=== PATIENT | male | born 1945 | race African-American/Black ===

== ENCOUNTER → 2018-07-07 | Outpatient (CLI) | payer MEDICARE, MEDICAID ==
[~2018-07-07] MED LIST: BRIM155OS OS; BRINOS OU; DILT240C93 PO; LOSA50TA37 PO; METF500T6 PO; PHEN100C23 PO; [UNRECOGNIZED DRUG - OTHER] OU
== END | disposition home or self-care (01) ==
LOC: RADPV 09:37
PROVIDERS: ATTEND Specialist
DX: R56.9 Unspecified convulsions (principal); R94.01 Abnormal electroencephalogram [EEG]
CPT/HCPCS: 95816

== ENCOUNTER 2022-04-01 11:04 | Emergency (ER) | payer MEDICARE, MEDICAID ==
[~2022-04-01] VITALS: Ht 185.4 cm; Wt 77.3 kg
[~2022-04-01 11:04] MED LIST changes: +BRIN10DR3 OU; -BRINOS OU; +DILT-72 PO; -DILT240C93 PO; +LOSA-382 PO; -LOSA50TA37 PO; +METF-1211 PO; -METF500T6 PO
[2022-04-01 13:36] LABS: BASOPHILS % (AUTO) 0.2 % (0.0-2.0); EOSINOPHILS % (AUTO) 0.4 % (1.0-6.0); HEMOGLOBIN 13.9 g/dL (13.5-17.5); LYMPHOCYTES # (AUTO) 1.2 K/uL (1.0-4.8); LYMPHOCYTES % (AUTO) 39.3 % (22.0-44.0); MEAN CORPUSCULAR HEMOGLOBIN 30.6 pg (26.0-34.0); MEAN CORPUSCULAR VOLUME 90 fL (80-100); MONOCYTES # (AUTO) 0.5 K/uL (0.1-1.0); MONOCYTES % (AUTO) 17.6 % (2.0-9.0); NEUTROPHILS # (AUTO) 1.3 K/uL (1.8-7.7); NEUTROPHILS % (AUTO) 42.5 % (40.0-70.0); PLATELET COUNT (AUTO) 195 K/uL (150-450); RED BLOOD CELL COUNT(AUTO) 4.56 MIL/uL (4.50-5.90)
[2022-04-01 13:38] LABS: CALCIUM, TOTAL 9.3 mg/dL (8.8-10.5); CREATININE 1.75 mg/dL (0.60-1.30); POTASSIUM 3.6 mmol/L (3.5-5.1)
[2022-04-01 13:44] LABS: ALBUMIN 3.9 g/dL (3.4-5.0); BILIRUBIN,TOTAL 0.6 mg/dL (0.1-1.0); PHENYTOIN (DILANTIN) 0.5 mcg/mL (10.0-20.0); TOTAL PROTEIN, SERUM 8.7 g/dL (6.4-8.2)
[2022-04-01] MEDS ORDERED: LORazepam 2 MG/ML VIAL IVP ONE (14:15)
[2022-04-01] MEDS ORDERED: PHENYTOIN SODIUM 100 MG ER CAPSULE PO ONE (14:15)
[2022-04-01 16:00] VITALS: BP 138/104
[2022-04-01] MEDS ORDERED: LOSA-382 PO (16:13)
[2022-04-01] MEDS ORDERED: PHENY100 PO (16:13)
== END 2022-04-01 16:49 | disposition home or self-care (01) ==
LOC: EMS 11:04
DX: G40.909 Epilepsy, unspecified, not intractable, without status epilepticus (principal); N28.9 Disorder of kidney and ureter, unspecified; I10 Essential (primary) hypertension; Z79.84 Long term (current) use of oral hypoglycemic drugs; Z83.3 Family history of diabetes mellitus
CPT/HCPCS: 36415; 80053; 80185; 85025; 96374; 99283; J2060

== ENCOUNTER 2025-05-31 14:28 | Inpatient (IN) | payer MEDICAID, MEDICARE ==
[~2025-05-31] VITALS: Ht 185.4 cm; Wt 81.3 kg
[~2025-05-31 14:28] MED LIST changes: -BRIM155OS OS; +BRIM5DRO23 OS; +PHEN100C74 PO
[2025-05-31 15:34] LABS: PLATELET COUNT (AUTO) 171 K/uL (150-450); RED BLOOD CELL COUNT(AUTO) 4.10 MIL/uL (4.50-5.90); RED CELL DISTRIBUTION WIDTH 15.2 % (11.5-14.5); WHITE BLOOD COUNT (AUTO) 4.1 K/uL (4.5-11.0)
[2025-05-31 15:35] LABS: CALCIUM, TOTAL 9.6 mg/dL (8.8-10.5); CREATININE 1.21 mg/dL (0.60-1.30); GLOMERULAR FILTR. RATE CALC > 60 mL/min (>60); GLUCOSE,RANDOM 74 mg/dL (70-110); UREA NITROGEN, BLOOD 24 mg/dL (7-18)
[2025-05-31 15:37] LABS: SODIUM SERUM 139 mmol/L (136-145)
[2025-05-31] MEDS: LORazepam 2 MG/ML VIAL IVP ONE (17:01)
[2025-05-31] MEDS: LevETIRAcetam 1,000 MG in DEXTROSE 5%-WATER 100 ML IV ONE (17:01)
[2025-05-31 17:08] LABS: TROPONIN I-HIGH SENSITIVITY 98 ng/L (<76)
[2025-05-31 17:15] LABS: PH,URINE DRUG SCREEN 5.5 (5.0-8.0)
[2025-05-31 17:16] LABS: APPEARANCE,URINE CLEAR (CLEAR); GLUCOSE, URINE (UA) NEGATIVE (NEGATIVE); LEUKOCYTE ESTERASE ,URINE NEGATIVE (NEGATIVE); NITRATE,URINE NEGATIVE (NEGATIVE); OCCULT BLOOD,URINE NEGATIVE (NEGATIVE); SPECIFIC GRAVITIY, URINE 1.019 (1.003-1.030)
[2025-05-31 17:21] LABS: ALCOHOL, URINE DRUG SCREEN NEGATIVE (NEGATIVE); AMPHET/METH SCREEN,URINE NEGATIVE (NEGATIVE); BARBITURATE SCREEN, URINE NEGATIVE (NEGATIVE); CANNABINOID SCREEN,URINE NEGATIVE (NEGATIVE); COCAINE SCREEN,URINE NEGATIVE (NEGATIVE); METHADONE SCREEN, URINE NEGATIVE (NEGATIVE)
[2025-05-31 19:27] LABS: TROPONIN I-HIGH SENSITIVITY 131 ng/L (<76)
[2025-05-31] MEDS ORDERED: MORPHINE SULFATE 2 MG/ML SYRINGE IVP PRN (22:00)
[2025-05-31] MEDS ORDERED: BISACODYL 10 MG RECTAL RECTAL SUPPOSITORY PR PRN (22:00)
[2025-05-31] MEDS ORDERED: HYDROCODONE/ACETAMINOPHEN 5-325 MG TABLET PO PRN (22:00)
[2025-05-31] MEDS ORDERED: ZOLPIDEM TARTRATE 5 MG TABLET PO PRN (22:00)
[2025-05-31] MEDS ORDERED: MAGNESIUM HYDROXIDE SUSPENSION 30 ML UDCUP PO PRN (22:00)
[2025-05-31] MEDS ORDERED: LORazepam 2 MG/ML VIAL IVP PRN (22:00)
[2025-05-31] MEDS ORDERED: ONDANSETRON HCL 4 MG/2 ML VIAL IVP PRN (22:00)
[2025-05-31 23:12] VITALS: BP 132/70; PULSE 78; RESP 18; TEMP 97.7; O2SAT 98
[2025-05-31] MEDS: HEPARIN SODIUM,PORCINE 5,000 UNITS/ML VIAL SQ SCH (23:34)
[2025-05-31] MEDS: ACETAMINOPHEN 325 MG TABLET PO PRN (23:34)
[2025-06-01 03:22] VITALS: BP 159/83; PULSE 73; RESP 18; TEMP 97.9; O2SAT 98
[2025-06-01 06:45] LABS: PLATELET COUNT (AUTO) 224 K/uL (150-450); RED BLOOD CELL COUNT(AUTO) 4.56 MIL/uL (4.50-5.90); RED CELL DISTRIBUTION WIDTH 14.9 % (11.5-14.5); WHITE BLOOD COUNT (AUTO) 3.7 K/uL (4.5-11.0)
[2025-06-01 07:01] LABS: CALCIUM, TOTAL 9.6 mg/dL (8.8-10.5); CREATININE 0.88 mg/dL (0.60-1.30); GLOMERULAR FILTR. RATE CALC > 60 mL/min (>60); GLUCOSE,RANDOM 79 mg/dL (70-110); SODIUM SERUM 139 mmol/L (136-145); UREA NITROGEN, BLOOD 16 mg/dL (7-18)
[2025-06-01 07:17] LABS: RBC MORPHOLOGY COMMENT NORMAL RBC MORPH
[2025-06-01 08:00] VITALS: BP 160/82; PULSE 72; RESP 18; TEMP 98.1; O2SAT 98
[2025-06-01] MEDS: DOCUSATE SODIUM 100 MG CAPSULE PO SCH (08:59)
[2025-06-01] MEDS: PANTOPRAZOLE SODIUM 40 MG DR TABLET PO SCH (08:59)
[2025-06-01] MEDS ORDERED: POTASSIUM CHL 10 MEQ/WATER 50 ML IV PRN (11:15)
[2025-06-01 12:00] VITALS: BP_SYST 129; BP_DIAS 75; BP_DIAS 81; PULSE 100; PULSE 74; RESP 18; RESP 22; TEMP 97.7; TEMP 97.9; O2SAT 100; O2SAT 96
[2025-06-01] MEDS: POTASSIUM CHLORIDE 20 MEQ ER TABLET PO PRN (12:26)
[2025-06-01 16:00] VITALS: BP 122/71; PULSE 75; RESP 18; TEMP 97.7; O2SAT 96
[2025-06-01 20:17] VITALS: BP 146/83; PULSE 75; RESP 19; TEMP 97.7; O2SAT 99
[2025-06-01 23:39] VITALS: BP 149/80; PULSE 67; RESP 17; TEMP 98; O2SAT 100
[2025-06-02 04:34] VITALS: BP 103/76; PULSE 71; RESP 18; TEMP 97.7; O2SAT 98
[2025-06-02 07:06] LABS: PLATELET COUNT (AUTO) 220 K/uL (150-450); RED BLOOD CELL COUNT(AUTO) 4.54 MIL/uL (4.50-5.90); RED CELL DISTRIBUTION WIDTH 15.0 % (11.5-14.5); WHITE BLOOD COUNT (AUTO) 4.3 K/uL (4.5-11.0)
[2025-06-02 07:09] LABS: CALCIUM, TOTAL 9.4 mg/dL (8.8-10.5); CREATININE 0.86 mg/dL (0.60-1.30); GLOMERULAR FILTR. RATE CALC > 60 mL/min (>60); GLUCOSE,RANDOM 94 mg/dL (70-110); SODIUM SERUM 136 mmol/L (136-145); UREA NITROGEN, BLOOD 16 mg/dL (7-18)
[2025-06-02 08:16] VITALS: BP 139/97; PULSE 72; RESP 19; TEMP 98.1; O2SAT 98
[2025-06-02 08:22] LABS: TROPONIN I-HIGH SENSITIVITY 97 ng/L (<76)
[2025-06-02 11:27] VITALS: BP 128/75; PULSE 73; RESP 20; TEMP 98.6; O2SAT 100
[2025-06-02 13:30] LABS: TROPONIN I-HIGH SENSITIVITY 73 ng/L (<76)
[2025-06-02 16:09] VITALS: BP 120/70; PULSE 73; RESP 18; TEMP 98.2; O2SAT 97
[2025-06-02 19:38] VITALS: BP 139/68; PULSE 70; RESP 19; TEMP 98.6; O2SAT 98
[2025-06-02 23:36] VITALS: BP 141/78; PULSE 67; RESP 18; TEMP 98.6; O2SAT 99
[2025-06-03 04:12] VITALS: BP 139/78; PULSE 68; RESP 19; TEMP 98.5; O2SAT 99
[2025-06-03 07:00] LABS: PLATELET COUNT (AUTO) 224 K/uL (150-450); RED BLOOD CELL COUNT(AUTO) 4.31 MIL/uL (4.50-5.90); RED CELL DISTRIBUTION WIDTH 14.9 % (11.5-14.5); WHITE BLOOD COUNT (AUTO) 4.5 K/uL (4.5-11.0)
[2025-06-03 07:05] LABS: CALCIUM, TOTAL 9.7 mg/dL (8.8-10.5); CREATININE 0.91 mg/dL (0.60-1.30); GLOMERULAR FILTR. RATE CALC > 60 mL/min (>60); GLUCOSE,RANDOM 82 mg/dL (70-110); SODIUM SERUM 142 mmol/L (136-145); UREA NITROGEN, BLOOD 17 mg/dL (7-18)
[2025-06-03 07:16] VITALS: BP 138/75; PULSE 65; RESP 18; TEMP 98.1; O2SAT 98
[2025-06-03] MEDS ORDERED: GADOTERATE MEGLUMINE 10 MMOL/20 ML VIAL IVP ONE (10:49)
[2025-06-03 12:00] VITALS: BP 132/72; PULSE 66; RESP 19; TEMP 98; O2SAT 98
[2025-06-03 15:11] VITALS: BP 130/86; PULSE 70; RESP 18; TEMP 98.1; O2SAT 97
[2025-06-03 19:30] VITALS: BP 129/70; PULSE 71; RESP 17; TEMP 97.9; O2SAT 99
[2025-06-03 23:17] VITALS: BP 143/95; PULSE 73; RESP 18; TEMP 97.9; O2SAT 99
[2025-06-04] VITALS (7 sets, daily range): BP systolic 134–197; BP diastolic 71–92; PULSE 68–85; RESP 18–19; TEMP 98.1–99.9; O2SAT 97–99
[2025-06-04 06:50] LABS: PLATELET COUNT (AUTO) 208 K/uL (150-450); RED BLOOD CELL COUNT(AUTO) 4.47 MIL/uL (4.50-5.90); RED CELL DISTRIBUTION WIDTH 14.9 % (11.5-14.5); WHITE BLOOD COUNT (AUTO) 4.6 K/uL (4.5-11.0)
[2025-06-04 07:03] LABS: CALCIUM, TOTAL 9.9 mg/dL (8.8-10.5); CREATININE 1.02 mg/dL (0.60-1.30); GLOMERULAR FILTR. RATE CALC > 60 mL/min (>60); GLUCOSE,RANDOM 101 mg/dL (70-110); SODIUM SERUM 138 mmol/L (136-145); UREA NITROGEN, BLOOD 20 mg/dL (7-18)
[2025-06-04] MEDS: METOPROLOL SUCCINATE 25 MG ER TABLET PO SCH (08:35)
[2025-06-04] MEDS ORDERED: SESTAMIBI TC99M/UD ISOTOPE 1 EA INJ INJ ONE ×2 (10:40→14:25)
[2025-06-04] MEDS: REGADENOSON 0.4 MG/5 ML PF SYRINGE IVP ONE (15:14)
[2025-06-04] MEDS: LOSARTAN POTASSIUM 25 MG TABLET PO SCH (17:12)
[2025-06-04] MEDS: SPIRONOLACTONE 25 MG TABLET PO SCH (18:10)
[2025-06-05 03:15] VITALS: BP 131/71; PULSE 68; RESP 17; TEMP 98.1; O2SAT 100
[2025-06-05 07:10] VITALS: BP 130/70; PULSE 63; RESP 18; TEMP 97.7; O2SAT 99
[2025-06-05] MEDS: METOPROLOL SUCCINATE 25 MG ER TABLET PO SCH (08:19)
[2025-06-05] MEDS ORDERED: SPIRONOLACTONE 25 MG TABLET PO SCH (09:00)
[2025-06-05] MEDS ORDERED: LOSARTAN POTASSIUM 25 MG TABLET PO SCH (09:00)
[2025-06-05] MEDS ORDERED: REGADENOSON 0.4 MG/5 ML PF SYRINGE IVP ONE (09:38)
[2025-06-05 11:07] VITALS: BP 118/63; PULSE 75; RESP 18; TEMP 97.9; O2SAT 98
[2025-06-05] MEDS ORDERED: ASPI-1444 PO (14:25)
[2025-06-05] MEDS ORDERED: CARV3 PO (14:25)
[2025-06-05] MEDS ORDERED: ATOR40TA28 PO (14:25)
[2025-06-05] MEDS ORDERED: EMPA10TA3 PO (14:26)
[2025-06-05] MEDS ORDERED: PHEN100C74 PO (14:26)
[2025-06-05 15:18] VITALS: BP 120/70; PULSE 76; RESP 18; TEMP 98.1; O2SAT 98
[2025-06-05] MEDS ORDERED: LEVE250T81 PO (19:33)
[2025-06-05] MEDS ORDERED: SPIR-37 PO (19:33)
[2025-06-05] MEDS ORDERED: LOSA-417 PO (19:33)
[2025-06-05 20:20] VITALS: BP 135/77; PULSE 68; RESP 17; TEMP 97.3; O2SAT 97
[2025-06-05 23:57] VITALS: BP 155/79; PULSE 66; RESP 18; TEMP 98.2; O2SAT 98
[2025-06-06 05:02] VITALS: BP 145/88; PULSE 66; RESP 19; TEMP 98.2; O2SAT 100
[2025-06-06 08:44] VITALS: BP 134/83; PULSE 70; RESP 18; TEMP 97.7; O2SAT 100
== END 2025-06-06 11:30 | disposition home or self-care (01) | DRG 53 ==
LOC: EMS 14:28 → EDH 20:52 → 5N 23:05
PROVIDERS: ADMIT Internal Medicine; ATTEND Internal Medicine
PROC: 4A00X4Z Measurement of Central Nervous Electrical Activity, External Approach (ICD-10-PCS; principal; 2025-06-03)
PROC: 4A02XM4 Measurement of Cardiac Total Activity, External Approach (ICD-10-PCS; 2025-06-04)
DX: G40.909 Epilepsy, unspecified, not intractable, without status epilepticus (principal); I42.9 Cardiomyopathy, unspecified; I24.89 Other forms of acute ischemic heart disease; I47.20 Ventricular tachycardia, unspecified; D63.8 Anemia in other chronic diseases classified elsewhere; I16.0 Hypertensive urgency; I10 Essential (primary) hypertension; E11.9 Type 2 diabetes mellitus without complications; E87.6 Hypokalemia; I25.5 Ischemic cardiomyopathy; Z60.2 Problems related to living alone; Z79.84 Long term (current) use of oral hypoglycemic drugs; Z79.899 Other long term (current) drug therapy; Z91.199 Patient's noncompliance with other medical treatment and regimen due to unspecified reason
CPT/HCPCS: 70450; 71045; 78452; 80048; 80185; 80307; 81003; 82140; 83735; 84132; 84484; 85025; 93005; 93306; 95816; 96365; 96375; 97110; 97116; 97163; 97167; 97530; 97535; 99291; A9500; G0480; J0360; J0712; J1644; J2060; J2785; J7060; 36415-L1; 36415-TC